=== PATIENT | female | born 1945 | race Caucasian/White ===

== ENCOUNTER → 2023-10-01 07:32 | Outpatient (REF) | payer BC, SELFPAY ==
[2023-10-01 09:31] LABS: ALT (SGPT) 18 U/L (0-35); AST (SGOT) 26 U/L (14-36); Albumin 3.7 g/dl (3.5-5.0); Alkaline Phosphatase 78 U/L (38-126); Blood Urea Nitrogen 26 mg/dl (7-17); Calcium 9.7 mg/dl (8.4-10.2); Carbon Dioxide 30 mmol/L (22-30); Chloride 103 mmol/L (98-107); Glucose 100 mg/dl (70-99); HDL Cholesterol 68 mg/dl; LDL Cholesterol, Calculated 98 mg/dl; Potassium 4.4 mmol/L (3.5-5.1); Sodium 140 mmol/L (135-145); Total Bilirubin 0.4 mg/dl (0.2-1.3); Total Cholesterol 181 mg/dl (50-199); Total Protein 6.2 g/dl (6.3-8.2); Triglyceride 76 mg/dl (10-149); Very Low Density Lipoprotein 15 mg/dl (0-30); eGFR > 60.00
== END ==
LOC: HWLAB 07:32
PROVIDERS: ATTENDING PHYSICIAN Internal Medicine; FAMILY PHYSICIAN Family Medicine
DX: E78.2 Mixed hyperlipidemia (principal)
CPT/HCPCS: 36415; 80053; 80061

== ENCOUNTER → 2023-12-24 07:40 | Outpatient (REF) | payer BC, SELFPAY ==
[2023-12-24 09:15] LABS: % Basophils 0.9 % (0-2); % Eosinophils 2.4 % (0-6); % Immature Granulocytes 0.2 % (0-0.5); % Lymphocytes 41.7 % (20.5-51.1); % Monocytes 9.9 % (1.7-9.3); % Neutrophils 44.9 % (42.2-75.2); Absolute Basophils 0.1 10^3/uL (0-0.2); Absolute Eosinophils 0.1 10^3/uL (0-0.7); Absolute Lymphocytes 2.4 10^3/uL (1.2-3.4); Absolute Monocytes 0.6 10^3/uL (0.1-0.6); Absolute Neutrophils 2.6 10^3/uL (1.4-6.5); Hematocrit 38.3 % (37.0-47.0); Hemoglobin 12.3 g/dL (12.0-16.0); Mean Corp Hgb Conc. 32.1 g/dL (33.0-37.0); Mean Corpuscular Hgb 28.7 pg (27.0-31.0); Mean Corpuscular Volume 89.3 fL (81.0-99.0); Mean Platelet Volume 9.2 fL (7.4-10.4); Nucleated Red Blood Cells % 0 %; Platelet Count 203 10^3/uL (130-400); Red Blood Cell Count 4.29 10^6/uL (4.20-5.40); Red Cell Dist. Width 13.7 % (11.5-14.5); White Blood Cell Count 5.8 10^3/uL (4.8-10.8)
[2023-12-24 09:22] LABS: Glycohemoglobin (HgbA1c) 5.5 % (4.0-5.6)
[2023-12-24 09:43] LABS: ALT (SGPT) 21 U/L (0-35); AST (SGOT) 30 U/L (14-36); Albumin 4.3 g/dl (3.5-5.0); Alkaline Phosphatase 68 U/L (38-126); Blood Urea Nitrogen 25 mg/dl (7-17); Carbon Dioxide 28 mmol/L (22-30); Chloride 106 mmol/L (98-107); Glucose 92 mg/dl (70-99); Potassium 4.3 mmol/L (3.5-5.1); Sodium 144 mmol/L (135-145); Total Bilirubin 0.5 mg/dl (0.2-1.3); Total Protein 6.7 g/dl (6.3-8.2); eGFR > 60.00
[2023-12-24 10:10] LABS: TSH 2.12 uIU/ml (0.47-4.68)
== END ==
LOC: HWLAB 07:40
PROVIDERS: ATTENDING PHYSICIAN Orthopaedic Surgery; FAMILY PHYSICIAN Family Medicine
DX: R73.03 Prediabetes (principal); I10 Essential (primary) hypertension; I51.9 Heart disease, unspecified; Z01.818 Encounter for other preprocedural examination
CPT/HCPCS: 36415; 80053; 83036; 84443; 85025

== ENCOUNTER 2024-02-03 08:54 | Emergency (ER) | payer BC, SELFPAY ==
[2024-02-03 09:02] VITALS: BP 165/77
--- NOTE | 2024-02-03 09:23 | ED.GENMED ---
History of Present Illness
<Mary Heard PA-C - Last Filed: 02/03/24 19:34>
General
Chief Complaint: Weakness
Source: patient
Exam Limitations: none
Time Seen by Provider: 02/03/24 09:08
Nursing documentation reviewed up to this point in time: agreed with
History of Present Illness
History of Present Illness:
Patient is a 78-year-old female 3 weeks post-op from left total knee replacement presenting to the emergency department for evaluation of 'shakiness 'and mild shortness of breath. Patient states that this past Saturday she had worsening in pain in
left lower extremity and felt extremely 'shaky 'throughout the day. She does endorse some mild shortness of breath and states that she 'notices herself breathing '. The symptoms have persisted since Saturday so she came to the emergency department
for further evaluation.
Patient denies any fever, chills, dizziness, pleuritic chest pain. Patient denies any cough, hemoptysis, or abdominal pain. Patient does deny any blood or abnormally dark stools.
Patient does report a history of an unprovoked pulmonary embolism >than 10 years ago for which she took Xarelto for a year at that time. Given history of PE�she was placed on Eliquis 2.5 mg twice daily prophylactically since knee replacement 3
weeks ago. Patient reports compliance to medication.
Past History
<Mary Heard PA-C - Last Filed: 02/03/24 19:34>
Past History
ED Past Medical History: HTN, Other (kidney stone, IBS, constipation) and Other (Remote history of PE)
ED Past Surgical History: Tonsilectomy
Social History
Tobacco: Non-smoker
Alcohol: None
Drug: None
Personal: Other
Living: with family
Employment: Other
Family History
Family History: Other
Review of Systems
<Mary Heard PA-C - Last Filed: 02/03/24 19:34>
Review of Systems
Allergies reviewed?: Yes
All Other Systems: ROS reviewed and negative except as documented in HPI and ROS
Phy Exam
<Mary Heard PA-C - Last Filed: 02/03/24 19:34>
Physical Exam
Physical Exam:
Vitals: Mildly hypertensive, otherwise vital signs stable. Oxygen saturation 100 on room air
General: Patient is well appearing, no acute distress
Skin: Warm and dry, no rashes or lesions
Head: Normocephalic, atraumatic
Eyes: Sclera nonicteric. EOMs intact. No nystagmus.
Throat: Protecting airway. No blood in posterior pharynx
Neck: Normal ROM, no cervical spine tenderness, no meningismus
Cardiac: Regular rate and rhythm, no murmurs.
Pulm: Normal respiratory effort, no wheezes, rales, rhonchi heard on exam. In no respiratory distress. Oxygen saturation 100 on room air
Abdomen: Abdomen soft. No abdominal tenderness.
Extremities: Well-healing linear scar of left knee. No significant erythema, warmth, or red streaking of left knee. Left calf nontender without any warmth or erythema. Negative Homans' sign of LLE. Great distal pulses of left lower extremity.
Neuro: AAOx3. CN II-XII intact. No focal neurologic deficits.
Psychiatric: Normal affect.
Course
<Mary Heard PA-C - Last Filed: 02/03/24 19:34>
Orders/Labs/Results
Orders:
Orders
02/03/24 09:28
Electrocardiogram (*1) Urgent
Reason for Study: Fatigue / Weakness
EKG- Treatment ONCE
02/03/24 09:29
CT Chest Pe Study Urgent
Comment: hx unprovoked PE > 10 years ago
Reason For Exam: SOB, 3 weeks post-op L knee replacement
0.9% Sodium Chloride 1000 ml [Nss] 1,000 ml IV BOLUS
02/03/24 10:16
Complete Blood Count/With Diff Urgent
Comprehensive Metabolic Panel Urgent
Troponin I Urgent
02/03/24 13:45
US Legs, Left [US Periph Venous LOWER Ext LT] Urgent
Comment:
Reason For Exam: pain LLE, 3 weeks post op knee replacement
Abnormal Lab Results
02/03/24
10:16
RBC 3.66 L 10^6/uL
(4.20-5.40)
Hgb 10.8 L g/dL
(12.0-16.0)
Hct 31.8 L %
(37.0-47.0)
Absolute Lymphs (auto) 1.0 L 10^3/uL
(1.2-3.4)
Lymphocytes % 19.2 L %
(20.5-51.1)
Monocytes % 9.4 H %
(1.7-9.3)
BUN 21 H mg/dl
(7-17)
02/03/24 10:16
02/03/24 10:16
Vital Signs
Initial and Last Documented VS:
Initial Vital Signs
Temp Pulse Resp BP Pulse Ox
97.4 F 88 16 165/77 100
02/03/24 09:02 02/03/24 09:02 02/03/24 09:02 02/03/24 09:02 02/03/24 09:02
Last Documented Vital Signs
Temp Pulse Resp BP Pulse Ox
97.4 F 85 16 155/65 100
02/03/24 09:02 02/03/24 15:00 02/03/24 15:00 02/03/24 15:00 02/03/24 15:00
<Faustino Cardenas, DO - Last Filed: 02/03/24 13:18>
Orders/Labs/Results
Orders:
Orders
02/03/24 09:28
Electrocardiogram (*1) Urgent
Reason for Study: Fatigue / Weakness
EKG- Treatment ONCE
02/03/24 09:29
CT Chest Pe Study Urgent
Comment: hx unprovoked PE > 10 years ago
Reason For Exam: SOB, 3 weeks post-op L knee replacement
0.9% Sodium Chloride 1000 ml [Nss] 1,000 ml IV BOLUS
02/03/24 10:16
Complete Blood Count/With Diff Urgent
Comprehensive Metabolic Panel Urgent
Troponin I Urgent
02/03/24 13:45
US Legs, Left [US Periph Venous LOWER Ext LT] Urgent
Comment:
Reason For Exam: pain LLE, 3 weeks post op knee replacement
Abnormal Lab Results
02/03/24
10:16
RBC 3.66 L 10^6/uL
(4.20-5.40)
Hgb 10.8 L g/dL
(12.0-16.0)
Hct 31.8 L %
(37.0-47.0)
Absolute Lymphs (auto) 1.0 L 10^3/uL
(1.2-3.4)
Lymphocytes % 19.2 L %
(20.5-51.1)
Monocytes % 9.4 H %
(1.7-9.3)
BUN 21 H mg/dl
(7-17)
02/03/24 10:16
02/03/24 10:16
Vital Signs
Initial and Last Documented VS:
Initial Vital Signs
Temp Pulse Resp BP Pulse Ox
97.4 F 88 16 165/77 100
02/03/24 09:02 02/03/24 09:02 02/03/24 09:02 02/03/24 09:02 02/03/24 09:02
Last Documented Vital Signs
Temp Pulse Resp BP Pulse Ox
97.4 F 85 16 155/65 100
02/03/24 09:02 02/03/24 15:00 02/03/24 15:00 02/03/24 15:00 02/03/24 15:00
<Mary Heard PA-C - Last Filed: 02/03/24 19:34>
MDM/Problems Addressed
Differential Diagnosis Includes:
Not limited to: Dehydration, anemia, pneumonia, pneumothorax, PE
MDM/Problems Addressed:
78-year-old female 3 weeks postop from left total knee replacement presenting for evaluation of mild shortness of breath and shakiness to rule out PE. Patient does have a remote history of unprovoked PE> 10 years ago for which she was
anticoagulated with Xarelto for about 1 year. Patient currently on Eliquis prophylactically s/p knee replacement. Patient denies any chest pain, fever, chills, hematuria, hematochezia, or melena. Patient compliant with Eliquis. She also states
pain in her left leg which has essentially been stable since the surgery. Vital signs stable. Physical exam as above. Patient very well-appearing, in no apparent respiratory distress. Heart regular rate and rhythm. Lungs clear bilaterally.
Patient does have a well-healing linear scar on the left anterior knee. Left calf without any erythema, edema, or tenderness. No clinical signs suggestive of DVT. She has great distal pulses in bilateral lower extremities and sensations intact.
Negative Homans' sign on left lower extremity. EKG shows normal sinus rhythm without any acute signs of ischemia. Will check basic labs, troponin. Although I have a low suspicion of PE based on patient's appearance and history�given recent
surgery and history of PE�will check CTA chest. Will check ultrasound of lower extremity to ensure no DVT. IV fluids
Labs noted. Mild anemia with a hemoglobin of 10.8 which is slightly lower than prior value. Did discuss with attending physician. Did discuss with patient given she is on Eliquis. She once again denies any bleeding and BUN appears stable if not
lower than usual. No evidence of GI bleed. Patient will follow-up with primary care provider for recheck to ensure hemoglobin trending upward. Otherwise no clinically significant abnormalities on labs. CTA shows no evidence of pulmonary embolism
or acute disease in the chest. Left lower extremity ultrasound negative for any signs of DVT.
Patient feeling somewhat improved following IV fluids. She has remained stable in the emergency department. At this point�workup has been essentially negative. Patient was counseled extensively regarding return precautions considering Eliquis/low
hemoglobin. She will follow with her primary care provider. Patient has follow-up with orthopedic surgeon this Saturday. All questions answered.
Chronic conditions affecting care:
History of pulmonary embolism
Acute Exacerbation and/or Progression of Chronic Illness:
N/A
<Mary Heard PA-C - Last Filed: 02/03/24 19:34>
*Radiology
Radiology exam reviewed: preliminary read by ED provider and radiology read reviewed
*Pulse Oximetry
Patient hypoxic: no
*EKG
Interpreted by ED Provider?: Yes
EKG Intrepretation Date: 02/03/24
Interpretation: normal
Heart Rate: 77
Rate: normal
Rhythm: sinus
Ischemia: no ischemia
*[employer] Interpretation
Rate: normal
Interpretation: normal
Heart Rate: 84
Rhythm: sinus
*Critical Care Note
Total Time (30-74mins, 75-104mins- exclusive of procedures): Not Applicable
ED Attending Note
<Mary Heard PA-C - Last Filed: 02/03/24 19:34>
-
Portions of this chart may have been created with voice recognition software.� Occasional wrong word or��sound alike� substitutions may have occurred due to the inherent limitations of voice recognition software.
<Faustino Cardenas DO - Last Filed: 02/03/24 13:18>
ED Attending Note
Patient seen and examined by attending physician: Yes
I performed the substantive portion of visit, reviewed & personally made and approve the management plan that is documented in note by myself or ANDERSON.: Yes
I performed a history and physical exam of patient and discussed management with resident, I reviewed resident's note and agree with documented findings and plan of care.: Yes
ED Attending Note:
I evaluated the patient at bedside. The patient is about 3 weeks postop for left knee replacement. She had a general unwell feeling with some degree of shortness of breath 2 days ago and again today. CTA shows no PE, troponin negative, other
basic labs unremarkable including normal white count. Hemoglobin has dropped lately.
Discharge Plan
Departure
Patient Disposition: Home (Routine Discharge)
Date of Disposition: 02/03/24
Time of Disposition: 14:34
Patient with high blood pressure during this ER visit?: Yes
Condition: Good
Covid-19: Not Applicable
Discharge Problem:
Shortness of breath, Leg pain, left
Instructions: Shortness of Breath, Adult ED, BLOOD PRESSURE
Prescriptions:
No Action
rabeprazole [AcipHex] 20 MG tablet,delayed release (DR/EC)
20 mg PO DAILY
famotidine 20 MG tablet
20 mg PO HS
cholecalciferol (vitamin D3) [Vitamin D3] 1,000 UNIT tablet
1,000 unit PO DAILY
Claritin Liqui-Gel 10 MG capsule
10 mg PO DAILY PRN (Reason: allergies)
epinephrine [EpiPen 2-Kevin] 0.3 MG/0.3 ML auto-injector
0.3 mg IJ DIRECTED Qty: 1 0RF
lisinopril 20 mg tablet
20 mg PO HS
tramadol 50 mg tablet
50 mg PO Q6HPRN PRN (Reason: severe pain)
metoprolol succinate 25 mg tablet extended release 24 hr
25 mg PO DAILY
Eliquis 2.5 mg tablet
2.5 mg PO BID
cyanocobalamin (vitamin B-12) [Vitamin B-12] 100 mcg Tablet
100 mcg PO DAILY
folic acid 400 mcg Tablet
0.4 mg PO DAILY
zinc sulfate 50 mg zinc (220 mg) Tablet
50 mg PO DAILY
acetaminophen [Tylenol Extended Release] 650 mg Tablet Extended Release
1,300 mg PO [id number] PRN (Reason: mild/moderate pain)
bisacodyl [Dulcolax (bisacodyl)] 5 mg Tablet,Delayed Release (Dr/Ec)
5 mg PO BIDPRN PRN (Reason: constipation)
Align 4 mg Capsule
4 mg PO DAILY
Referrals:
Alyssa Daniels MD [Family Provider] - Call in 1-3 days for appt
Rasta Caldwell MD [Active] - As needed
Activity Restrictions/Additional Instructions:
RETURN TO THE EMERGENCY DEPARTMENT WITH ANY CHEST PAIN, SHORTNESS OF BREATH, PERSISTENT DIZZINESS/LIGHTHEADEDNESS, SEVERE ABDOMINAL PAIN, WORSENING PAIN IN LEFT LOWER EXTREMITY, BLEEDING, DARK STOOLS, WORSENING IN CURRENT SYMPTOMS, OR ANY OTHER
CONCERNS
-As discussed�there is no evidence of blood clot in your lower leg or in your lungs today while in the emergency department.
-Your hemoglobin was found to be slightly low at 10.8. You should have this rechecked with your primary care doctor in 1 to 2 weeks to ensure it is trending upwards. Monitor your symptoms closely and return with any bleeding, dizziness, shortness
of breath, dark stools, or any other concerns
-You should continue to take all your medications as prescribed. Continue to ice and elevate your left leg. Follow-up with orthopedics as scheduled.
Interventions
Interventions:
*Risk Screen - Suicide Last Done: 02/03/24 09:06
*General Assessment Last Done: 02/03/24 10:24
*Neglect/Abuse Screening Last Done: 02/03/24 09:06
*ED COVID-19 Vaccine History Last Done: 02/03/24 09:02
*Nursing Disposition Last Done: 02/03/24 15:01
ED- Cardiac Assessment Last Done: 02/03/24 10:22
ED- Neurological Assessment Last Done: 02/03/24 10:22
ED- Pulmonary Assessment Last Done: 02/03/24 10:22
Discharge Date and Time
Discharge Date/Time: 02/03/24 15:01
Print Language: CZECH
[2024-02-03 10:09] VITALS: BP 142/102
[2024-02-03] MEDS: NSS 1000 IV (10:29)
[2024-02-03 10:31] LABS: % Basophils 0.8 % (0-2); % Eosinophils 0.8 % (0-6); % Immature Granulocytes 0.4 % (0-0.5); % Lymphocytes 19.2 % (20.5-51.1); % Monocytes 9.4 % (1.7-9.3); % Neutrophils 69.4 % (42.2-75.2); Absolute Monocytes 0.5 10^3/uL (0.1-0.6); Absolute Neutrophils 3.7 10^3/uL (1.4-6.5); Hematocrit 31.8 % (37.0-47.0); Hemoglobin 10.8 g/dL (12.0-16.0); Mean Corpuscular Hgb 29.5 pg (27.0-31.0); Mean Corpuscular Volume 86.9 fL (81.0-99.0); Mean Platelet Volume 8.7 fL (7.4-10.4); Nucleated Red Blood Cells % 0 %; Platelet Count 227 10^3/uL (130-400); Red Blood Cell Count 3.66 10^6/uL (4.20-5.40); Red Cell Dist. Width 14.2 % (11.5-14.5); White Blood Cell Count 5.3 10^3/uL (4.8-10.8)
[2024-02-03 10:45] LABS: ALT (SGPT) 20 U/L (0-35); AST (SGOT) 29 U/L (14-36); Albumin 4.1 g/dl (3.5-5.0); Alkaline Phosphatase 80 U/L (38-126); Blood Urea Nitrogen 21 mg/dl (7-17); Calcium 9.9 mg/dl (8.4-10.2); Carbon Dioxide 28 mmol/L (22-30); Chloride 107 mmol/L (98-107); Glucose 99 mg/dl (70-99); Potassium 4.4 mmol/L (3.5-5.1); Sodium 141 mmol/L (135-145); Total Bilirubin 0.7 mg/dl (0.2-1.3); Total Protein 6.7 g/dl (6.3-8.2); eGFR > 60.00
[2024-02-03 10:50] LABS: Troponin I < 0.012 ng/ml
[2024-02-03 11:00] VITALS: BP 182/78
[2024-02-03 12:00] VITALS: BP 151/70
[2024-02-03 15:00] VITALS: BP 155/65
== END 2024-02-03 15:01 | disposition home or self-care (01) ==
LOC: EMR 08:54
PROVIDERS: Physician Assistant; EMERGENCY PHYSICIAN Emergency Medicine; FAMILY PHYSICIAN Family Medicine
DX: R06.02 Shortness of breath (principal); M79.605 Pain in left leg; Z96.652 Presence of left artificial knee joint; Z86.711 Personal history of pulmonary embolism
CPT/HCPCS: 99285; 96360; 71275; 80053; 84484; 85025; 93005; 93971; Q9967

== ENCOUNTER → 2024-03-10 08:28 | Outpatient (REF) | payer BC, SELFPAY ==
[2024-03-10 09:31] LABS: % Basophils 1.1 % (0-2); % Eosinophils 4.2 % (0-6); % Immature Granulocytes 0.2 % (0-0.5); % Lymphocytes 32.7 % (20.5-51.1); % Monocytes 11.2 % (1.7-9.3); % Neutrophils 50.6 % (42.2-75.2); Absolute Basophils 0.1 10^3/uL (0-0.2); Absolute Eosinophils 0.2 10^3/uL (0-0.7); Absolute Lymphocytes 1.5 10^3/uL (1.2-3.4); Absolute Monocytes 0.5 10^3/uL (0.1-0.6); Absolute Neutrophils 2.3 10^3/uL (1.4-6.5); Hematocrit 35.2 % (37.0-47.0); Hemoglobin 11.7 g/dL (12.0-16.0); Mean Corp Hgb Conc. 33.2 g/dL (33.0-37.0); Mean Corpuscular Hgb 29.3 pg (27.0-31.0); Mean Platelet Volume 8.6 fL (7.4-10.4); Nucleated Red Blood Cells % 0 %; Platelet Count 205 10^3/uL (130-400); Red Cell Dist. Width 13.2 % (11.5-14.5); White Blood Cell Count 4.6 10^3/uL (4.8-10.8)
[2024-03-10 09:54] LABS: ALT (SGPT) 17 U/L (0-35); AST (SGOT) 25 U/L (14-36); Albumin 4.3 g/dl (3.5-5.0); Alkaline Phosphatase 79 U/L (38-126); Blood Urea Nitrogen 27 mg/dl (7-17); Calcium 9.9 mg/dl (8.4-10.2); Carbon Dioxide 29 mmol/L (22-30); Chloride 106 mmol/L (98-107); Glucose 96 mg/dl (70-99); Iron 92 ug/dl (37-170); Potassium 4.2 mmol/L (3.5-5.1); Sodium 140 mmol/L (135-145); Total Bilirubin 0.4 mg/dl (0.2-1.3); Total Protein 6.5 g/dl (6.3-8.2); eGFR > 60.00
[2024-03-10 10:03] LABS: Percent Saturation 22 % (20-50); Total Iron Binding Capacity 406 ug/dl (265-497)
[2024-03-10 10:43] LABS: Ferritin 13.4 ng/ml (11.1-264.0)
[2024-03-10 11:14] LABS: Folate > 20.0 ng/ml (2.76-20); Vitamin B12 839 pg/ml (239-931)
== END ==
LOC: HWLAB 08:28
PROVIDERS: ATTENDING PHYSICIAN Family Medicine
DX: D64.9 Anemia, unspecified (principal)
CPT/HCPCS: 80053; 82607; 82728; 82746; 83540; 83550; 85025

== ENCOUNTER → 2024-06-18 07:58 | Outpatient (REF) | payer BC, SELFPAY ==
[2024-06-18 09:44] LABS: % Basophils 1.6 % (0-2); % Eosinophils 2.9 % (0-6); % Immature Granulocytes 0.3 % (0-0.5); % Lymphocytes 24.5 % (20.5-51.1); % Monocytes 13.3 % (1.7-9.3); % Neutrophils 57.4 % (42.2-75.2); Absolute Basophils 0.1 10^3/uL (0-0.2); Absolute Eosinophils 0.1 10^3/uL (0-0.7); Absolute Lymphocytes 0.9 10^3/uL (1.2-3.4); Absolute Monocytes 0.5 10^3/uL (0.1-0.6); Absolute Neutrophils 2.2 10^3/uL (1.4-6.5); Hematocrit 35.1 % (37.0-47.0); Hemoglobin 11.7 g/dL (12.0-16.0); Mean Corp Hgb Conc. 33.3 g/dL (33.0-37.0); Nucleated Red Blood Cells % 0 %; Platelet Count 201 10^3/uL (130-400); Red Blood Cell Count 4.18 10^6/uL (4.20-5.40); Red Cell Dist. Width 13.4 % (11.5-14.5); White Blood Cell Count 3.8 10^3/uL (4.8-10.8)
[2024-06-18 09:55] LABS: ALT (SGPT) 20 U/L (0-35); AST (SGOT) 26 U/L (14-36); Albumin 4.5 g/dl (3.5-5.0); Alkaline Phosphatase 78 U/L (38-126); Blood Urea Nitrogen 28 mg/dl (7-17); Calcium 9.7 mg/dl (8.4-10.2); Carbon Dioxide 24 mmol/L (22-30); Chloride 106 mmol/L (98-107); Glucose 97 mg/dl (70-99); Potassium 4.4 mmol/L (3.5-5.1); Sodium 143 mmol/L (135-145); Total Bilirubin 0.3 mg/dl (0.2-1.3); Total Protein 6.7 g/dl (6.3-8.2); eGFR > 60.00
[2024-06-18 13:05] LABS: Glycohemoglobin (HgbA1c) 5.6 % (4.0-5.6)
== END ==
LOC: HWLAB 07:58
PROVIDERS: ATTENDING PHYSICIAN Family Medicine
DX: E61.1 Iron deficiency (principal); D68.59 Other primary thrombophilia
CPT/HCPCS: 36415; 80053; 83036; 85025

== ENCOUNTER → 2024-10-12 08:21 | Outpatient (REF) | payer BC, SELFPAY ==
[2024-10-12 12:15] LABS: % Basophils 0.9 % (0-2); % Eosinophils 2.7 % (0-6); % Immature Granulocytes 0.2 % (0-0.5); % Monocytes 13.1 % (1.7-9.3); % Neutrophils 56.1 % (42.2-75.2); Absolute Eosinophils 0.1 10^3/uL (0-0.7); Absolute Lymphocytes 1.2 10^3/uL (1.2-3.4); Absolute Monocytes 0.6 10^3/uL (0.1-0.6); Absolute Neutrophils 2.5 10^3/uL (1.4-6.5); Hemoglobin 11.7 g/dL (12.0-16.0); Mean Corp Hgb Conc. 32.5 g/dL (33.0-37.0); Mean Corpuscular Hgb 27.7 pg (27.0-31.0); Mean Corpuscular Volume 85.1 fL (81.0-99.0); Mean Platelet Volume 9.2 fL (7.4-10.4); Nucleated Red Blood Cells % 0 %; Platelet Count 199 10^3/uL (130-400); Red Blood Cell Count 4.23 10^6/uL (4.20-5.40); Red Cell Dist. Width 14.3 % (11.5-14.5); White Blood Cell Count 4.4 10^3/uL (4.8-10.8)
[2024-10-12 12:27] LABS: Iron 95 ug/dl (37-170)
[2024-10-12 12:38] LABS: Percent Saturation 22 % (20-50); Total Iron Binding Capacity 421 ug/dl (265-497)
[2024-10-12 13:02] LABS: Ferritin 8.4 ng/ml (11.1-264.0)
[2024-10-12 13:34] LABS: Folate > 20.0 ng/ml (2.76-20); Vitamin B12 588 pg/ml (239-931)
== END ==
LOC: HWLAB 08:21
PROVIDERS: ATTENDING PHYSICIAN Family Medicine
DX: D64.9 Anemia, unspecified (principal)
CPT/HCPCS: 36415; 82607; 82728; 82746; 83540; 83550; 85025

== ENCOUNTER → 2024-11-23 10:04 | Outpatient (REF) | payer BC, SELFPAY | LOC: HWWDC 10:04 | PROVIDERS: ATTENDING PHYSICIAN Family Medicine | DX: Z12.31 Encounter for screening mammogram for malignant neoplasm of breast (principal); Z78.0 Asymptomatic menopausal state | CPT/HCPCS: 77063; 77067; 77080 ==

== ENCOUNTER → 2025-01-18 10:29 | Outpatient (REF) | payer BC, SELFPAY ==
[2025-01-18 12:21] LABS: % Eosinophils 2.1 % (0-6); % Immature Granulocytes 0.6 % (0-0.5); % Lymphocytes 26.1 % (20.5-51.1); % Monocytes 12.8 % (1.7-9.3); % Neutrophils 57.4 % (42.2-75.2); Absolute Basophils 0.1 10^3/uL (0-0.2); Absolute Eosinophils 0.1 10^3/uL (0-0.7); Absolute Lymphocytes 1.4 10^3/uL (1.2-3.4); Absolute Monocytes 0.7 10^3/uL (0.1-0.6); Hematocrit 35.7 % (37.0-47.0); Hemoglobin 11.7 g/dL (12.0-16.0); Mean Corp Hgb Conc. 32.8 g/dL (33.0-37.0); Mean Corpuscular Hgb 28.6 pg (27.0-31.0); Mean Corpuscular Volume 87.3 fL (81.0-99.0); Mean Platelet Volume 9.4 fL (7.4-10.4); Nucleated Red Blood Cells % 0 %; Platelet Count 215 10^3/uL (130-400); Red Blood Cell Count 4.09 10^6/uL (4.20-5.40); Red Cell Dist. Width 13.9 % (11.5-14.5); White Blood Cell Count 5.2 10^3/uL (4.8-10.8)
[2025-01-18 12:47] LABS: Iron 80 ug/dl (37-170)
[2025-01-18 12:56] LABS: Percent Saturation 20 % (20-50); Total Iron Binding Capacity 399 ug/dl (265-497)
[2025-01-18 13:20] LABS: Ferritin 10.9 ng/ml (11.1-264.0)
== END ==
LOC: HWLAB 10:29
PROVIDERS: ATTENDING PHYSICIAN Family Medicine
DX: D64.9 Anemia, unspecified (principal)
CPT/HCPCS: 36415; 82728; 83540; 83550; 85025

== ENCOUNTER → 2025-07-14 08:32 | Outpatient (REF) | payer BC, SELFPAY ==
[2025-07-14 09:46] LABS: Hematocrit 36.3 % (37.0-47.0); Hemoglobin 12.1 g/dL (12.0-16.0); Mean Corp Hgb Conc. 33.3 g/dL (33.0-37.0); Mean Corpuscular Volume 88.8 fL (81.0-99.0); Nucleated Red Blood Cells % 0 %; Platelet Count 205 10^3/uL (130-400); Red Cell Dist. Width 13.5 % (11.5-14.5)
[2025-07-14 10:23] LABS: Glycohemoglobin (HgbA1c) 5.6 % (4.0-5.9)
[2025-07-14 10:29] LABS: ALT (SGPT) 24 U/L (0-35); AST (SGOT) 29 U/L (14-36); Albumin 4.5 g/dl (3.5-5.0); Alkaline Phosphatase 66 U/L (38-126); Blood Urea Nitrogen 25 mg/dl (7-17); Calcium 9.7 mg/dl (8.4-10.2); Carbon Dioxide 27 mmol/L (22-30); Chloride 107 mmol/L (98-107); Glucose 88 mg/dl (70-99); HDL Cholesterol 89 mg/dl; Iron 117 ug/dl (37-170); LDL Cholesterol, Calculated 125 mg/dl; Potassium 4.1 mmol/L (3.5-5.1); Sodium 140 mmol/L (135-145); Total Protein 7.2 g/dl (6.3-8.2); Very Low Density Lipoprotein 13 mg/dl (0-30); eGFR > 60.00
[2025-07-14 10:39] LABS: Total Iron Binding Capacity 409 ug/dl (265-497)
[2025-07-14 11:07] LABS: Ferritin 11.4 ng/ml (11.1-264.0)
== END ==
LOC: REG 08:32
PROVIDERS: ATTENDING PHYSICIAN Family Medicine
DX: I11.9 Hypertensive heart disease without heart failure (principal); R73.03 Prediabetes; E78.2 Mixed hyperlipidemia; D64.9 Anemia, unspecified; E61.1 Iron deficiency
CPT/HCPCS: 36415; 80053; 80061; 82728; 83036; 83540; 83550; 84443; 85025